=== PATIENT | male | born 1945 | race Caucasian/White ===

== ENCOUNTER 2020-02-29 08:11 | Outpatient (CLI) | payer MEDICARE, SELFPAY ==
--- NOTE | 2020-02-29 | DI.MRI_ITS ---
EXAM: MR PELVIS WO CLINICAL HISTORY: PROSTATE CA,C61,S/P FIDUCIAL MARKER AND HYDROGEL, PRE RADIATION PLANNING. TECHNIQUE: Multiplanar multisequence MRI was performed. COMPARISON: No exams were available for comparison FINDINGS: MR examination of the pelvis was performed utilizing limited protocol for pre radiation planning. No gross bony signal abnormality identified in the pelvic region. No pelvic or inguinal adenopathy, heterogeneous appearance of prostate noted. With moderate prostatic enlargement. [place] gel placemen t noted anterior to the rectum. IMPRESSION: DATA REPOSITORY:
== END 2020-02-29 08:31 ==
PROVIDERS: PCP Radiology Radiation Oncology; Visit Provider Radiology Radiation Oncology
DX: C61 Malignant neoplasm of prostate (principal); Z51.0 Encounter for antineoplastic radiation therapy
CPT/HCPCS: 72195